=== PATIENT | female | born 1985 | race Caucasian/White ===

== ENCOUNTER 2017-07-20 03:52 | Emergency (ER) | payer MEDICAID, OTHER ==
[~2017-07-20] VITALS: Ht 149.9 cm; Wt 103.4 kg
[~2017-07-20 03:52] MED LIST: CEPH500C3 PO; PRENCAP6 PO
[2017-07-20 03:56] VITALS: BP 174/96; PULSE 123; RESP 18; TEMP 98.1; O2SAT 98
[2017-07-20] MEDS ORDERED: TYLE325T PO (04:15)
[2017-07-20] MEDS ORDERED: HUMIBIDDM PO (04:15)
[2017-07-20] MEDS ORDERED: PRED20 PO (06:04)
--- NOTE | 2017-07-20 06:05 | PD ---
HPI Chief Complaint: ENT Complaint Time Seen by Provider: 05:54 Travel History International Travel<30 days: No Contact w/Intl Traveler<30days: No Traveled to known affect area: No History of Present Illness HPI The patient is a 32-year-old female that complains of sore throat and mild bilateral ear pain for about 4-1/2 days. She feels that her ears are popping in she feels like going up a mountain. The main pain is a sore throat. She has only a minimal dry cough. PFSH Past Medical History Hx Anticoagulant Therapy: No Blood Disorders: No Anxiety: Yes Depression: Yes Cancer: No Cardiovascular Problems: No Chemotherapy: No Cerebrovascular Accident: No Diabetes: No Diminished Hearing: No Endocrine: No Gastrointestinal Disorders: No Genitourinary: Yes (UTI) Hypertension: Yes (takes no meds) Immune Disorder: No Musculoskeletal: No Neurologic: No Psychiatric: Yes Reproductive: No Respiratory: No Immunizations Current: Yes Thyroid Disease: No ?: Not LMP: 1-17-18 : 4 Miscarriage: 3 Past Surgical History AICD: No Arteriovenous Shunt: No Hysterectomy: No Insulin Pump: No Joint Replacement: No Oral Surgery: Yes (WISDOM TEETH EXTRACTION) Pacemaker: No Other Surgery: Yes Social History Alcohol Use: No Tobacco Use: No Substance Use: No Allergies-Medications (Allergen,Severity, Reaction): Coded Allergies: No Known Allergies (Unverified Adverse Reaction, Unknown, 07/20/17) Reported Meds & Prescriptions Reported Meds & Active Scripts Active Reported Tylenol (Acetaminophen) 325 Mg Tab 650 Mg PO Q4H PRN Mucinex DM (Dextromethorphan-Guaifenesin) 30-600 Mg Tab 2 Tab PO BID PRN Review of Systems Except as stated in HPI: all other systems reviewed are Neg Physical Exam Narrative GENERAL: Well-nourished, well-developed patient in minimal apparent distress with her sore throat and ear pain. SKIN: Focused skin assessment warm/dry. HEAD: Normocephalic. EYES: No scleral icterus. No injection or drainage. NECK: Supple, trachea midline. No JVD or lymphadenopathy. CARDIOVASCULAR: Regular rate and rhythm without murmurs, gallops, or rubs. RESPIRATORY: Breath sounds equal bilaterally. No accessory muscle use. GASTROINTESTINAL: Abdomen soft, non-tender, nondistended. MUSCULOSKELETAL: No cyanosis, or edema. BACK: Nontender without obvious deformity. No CVA tenderness. ENT: The tympanic membranes show a slight serous otitis media on the right but both eardrums are normal and there is no evidence of infection. The throat is slightly red without exudate or abscess. Data Data Last Documented VS Vital Signs Date Time Temp Pulse Resp B/P (MAP) Pulse Ox O2 Delivery O2 Flow Rate FiO2 07/20/17 03:56 98.1 123 18 174/96 (122) 98 Orders Orders Influenzae A/B Antigen (07/20/17 04:07) Group A Rapid Strep Screen (07/20/17 04:07) Strep Culture (Group A) (07/20/17 04:10) MDM Medical Decision Making Medical Screen Exam Complete: Yes Emergency Medical Condition: Yes Medical Record Reviewed: Yes Interpretation(s) The influenza A/B antigen is negative for flu a and flu B antigen. The strep screen is negative for group A strep antigen. Differential Diagnosis Otitis media, otitis externa, strep pharyngitis, viral pharyngitis, pneumonia, bronchitis, serous otitis media Narrative Course The tympanic membranes are normal and is appears to be serous otitis media on the right only. The strep screen is negative and the flu swab was negative for influenza. The patient appears to have viral pharyngitis. Diagnosis Primary Impression: Viral pharyngitis Additional Impression: Right serous otitis media Additional Instructions: Use warm saltwater gargles and take the present on one tablet twice daily for 5 days. Follow-up next week with your primary care physician. Med/Other Pt SpecificInfo: Prescription(s) given Scripts Prednisone (Prednisone) 20 Mg Tab 20 MG PO BID for 5 Days, #10 TAB 0 Refills Prov: Eric Salinas MD 07/20/17 Disposition: 01 DISCHARGE HOME Condition: Stable Eric Salinas MD Jul 20, 2017 06:05
[2017-07-20] MEDS ORDERED: predniSONE 20 MG TAB PO ONE (06:15)
[2017-07-20 06:23] VITALS: BP 174/80
== END 2017-07-20 06:25 | disposition home or self-care (01) ==
LOC: PHED 03:52
DX: J02.8 Acute pharyngitis due to other specified organisms (principal); H65.91 Unspecified nonsuppurative otitis media, right ear; F41.9 Anxiety disorder, unspecified; F32.9 Major depressive disorder, single episode, unspecified; I10 Essential (primary) hypertension
CPT/HCPCS: 87081; 87804; 87880; 99283; J7512